=== PATIENT | male | born 1995 | race African-American/Black ===

== ENCOUNTER 2021-01-05 10:34 | Emergency (ER) | payer OTHER ==
[~2021-01-05] VITALS: Ht 167.6 cm; Wt 72.7 kg
[2021-01-05 11:20] VITALS: BP 140/88
== END 2021-01-05 11:25 | disposition home or self-care (01) ==
LOC: EMS 10:41
DX: R51.9 Headache, unspecified (principal); F17.210 Nicotine dependence, cigarettes, uncomplicated; F12.90 Cannabis use, unspecified, uncomplicated
CPT/HCPCS: 99281; 99406; Z7502